=== PATIENT | female | born 1985 | race African-American/Black ===

== ENCOUNTER 2016-12-24 07:32 | Emergency (ER) | payer SELFPAY ==
[~2016-12-24] VITALS: Ht 167.6 cm; Wt 75.0 kg
[2016-12-24] MEDS ORDERED: TETANUS, DIPHTHERIA, PERTUSSIS VAC/PF 0.5ML (>7YR OLD) IM ONE (08:45)
[2016-12-24] MEDS ORDERED: KETOROLAC 60MG/2ML VIAL IM ONE (08:45)
[2016-12-24 09:47] LABS: CLARITY URINE CLOUDY (CLEAR); COLOR URINE DARK YELLOW (YELLOW); GLUCOSE URINE NEGATIVE (NEGATIVE); KETONES URINE TRACE (NEGATIVE); LEUKOCYTE ESTERASE URINE NEGATIVE (NEGATIVE); NITRITE URINE NEGATIVE (NEGATIVE); OCCULT BLOOD URINE NEGATIVE (NEGATIVE); PH URINE 5.5 (4.5-8.0); PROTEIN URINE NEGATIVE (NEGATIVE); SPECIFIC GRAVITY URINE 1.031 (1.005-1.030)
[2016-12-24 10:00] VITALS: BP 118/84
== END 2016-12-24 11:48 | disposition home or self-care (01) ==
LOC: ER 10:57
DX: S16.1XXA Strain of muscle, fascia and tendon at neck level, initial encounter (principal); J45.909 Unspecified asthma, uncomplicated; Z98.890 Other specified postprocedural states; V49.9XXA Car occupant (driver) (passenger) injured in unspecified traffic accident, initial encounter; Y93.89 Activity, other specified; Y99.8 Other external cause status; Y92.89 Other specified places as the place of occurrence of the external cause
CPT/HCPCS: 70450; 72125; 81001; 81025; 90471; 90715; 96372; 99285; J1885

== ENCOUNTER 2019-07-10 18:10 | Emergency (ER) | payer MEDICAID ==
[~2019-07-10] VITALS: Ht 167.6 cm; Wt 64.0 kg
[2019-07-10] MEDS ORDERED: ALBUTEROL (0.083%) 2.5MG/3ML NEB HHN STA (21:01)
[2019-07-10] MEDS ORDERED: PREDNISONE 20MG TABLET PO STA (21:01)
[2019-07-10] MEDS ORDERED: IPRATROPIUM BROMIDE (0.02%) 0.5MG/2.5ML NEB HHN STA (21:01)
[2019-07-10] MEDS ORDERED: MAGNESIUM CITRATE 300ML SOLUTION PO ONE (21:15)
[2019-07-10 22:12] VITALS: BP 135/80
== END 2019-07-10 22:12 | disposition home or self-care (01) ==
LOC: ER 18:10
DX: J45.901 Unspecified asthma with (acute) exacerbation (principal); K59.00 Constipation, unspecified; Z98.890 Other specified postprocedural states
CPT/HCPCS: 94640; 99283; J7512; J7610; Z7610